=== PATIENT | female | born 1990 | race African-American/Black ===

== ENCOUNTER 2016-11-16 10:33 | Emergency (ER) | payer OTHER ==
[2016-11-16 10:15] LABS: INFLUENZA A NEG (NEG); INFLUENZA B POS (NEG)
== END 2016-11-16 11:02 | disposition home or self-care (01) ==
LOC: CFTX 10:33
PROVIDERS: Nurse Practitioner
DX: J10.1 Influenza due to other identified influenza virus with other respiratory manifestations (principal); J45.909 Unspecified asthma, uncomplicated; F17.200 Nicotine dependence, unspecified, uncomplicated
CPT/HCPCS: 87651; 87804; 99283